=== PATIENT | male | born 1950 | race Two or more races ===

== ENCOUNTER 2018-03-24 06:24 | Day surgery (SDC) | payer BC, MEDICARE ==
[~2018-03-24] VITALS: Ht 30.5 cm; Wt 0.5 kg
[~2018-03-24 06:24] MED LIST: [UNRECOGNIZED DRUG - OTHER]
[2018-03-24] MEDS ORDERED: ceFAZolin 1GM/100ML 50 ML IV ONE (07:54)
[2018-03-24 08:14] LABS: Basophils # (auto) 0 uL; Basophils % (auto) 0.7 % (0.0-2.0); Eosinophils # (auto) 0.3 uL; Eosinophils % (auto) 4.3 % (0.0-7.0); Hematocrit 48.3 % (41.0-53.0); Hemoglobin 16.1 g/dL (13.5-17.5); Lymphocytes # (auto) 1.7 uL; Lymphocytes % (auto) 25.2 % (10.0-50.0); Mean Corpuscular Hemoglobin 29.4 pg (28.0-32.0); Mean Corpuscular Hgb Conc. 33.4 g/dL (32.0-36.0); Mean Corpuscular Volume 88.1 fL (80.0-100.0); Monocytes # (auto) 0.5 uL; Monocytes % (auto) 7.2 % (0.0-12.0); Neutrophils # (auto) 4.3 uL; Neutrophils % (auto) 62.6 % (37.0-80.0); Nucleated Red Blood Cells % 0.1 %; Platelet Count (auto) 186 10^3/uL (140-450); Red Blood Cells 5.48 10^6/uL (4.5-5.90); White Blood Cell 6.9 10^3/uL (4.4-10.8)
[2018-03-24 08:27] LABS: INR 1.03 (0.9-1.15); Prothrombin Time 11.2 sec (9.37-12.3)
[2018-03-24 08:45] LABS: BUN/Creatinine Ratio 17.6; Calcium 8.7 mg/dL (8.5-10.1); Potassium 4.1 mmol/L (3.5-5.1)
[2018-03-24] MEDS ORDERED: LIDOCAINE HCL 100 MG/5ML (2%) SYRG INJ IV ONE (10:15)
[2018-03-24] MEDS ORDERED: PROPOFOL 10 MG/ML 20 ML IV ONE (10:15)
[2018-03-24] MEDS ORDERED: MIDAZOLAM HCL 1MG/1ML-2 ML VIAL ONE (10:15)
[2018-03-24] MEDS ORDERED: METOCLOPRAMIDE HCL 5MG/ml INJ 2ml VIAL ONE (10:33)
[2018-03-24] MEDS ORDERED: LIDOCAINE HCL 2% TOP JELLY 5ML TOP ONE (10:35)
[2018-03-24] MEDS ORDERED: fentaNYL CITRATE 100 MCG/2 ML VL ONE (10:43)
[2018-03-24] MEDS ORDERED: ePHEDrine SULFATE 50 MG/ML AMP ONE (10:58)
[2018-03-24] MEDS ORDERED: ACCU-CHEK COMFORT CURVE STRIP VI ONE (11:00)
[2018-03-24] MEDS ORDERED: NALOXONE HCL 0.4 MG/ML VIAL IV PRN (11:00)
[2018-03-24] MEDS ORDERED: ONDANSETRON HCL 4 MG/2 ML VIAL IV ONE (11:00)
[2018-03-24] MEDS ORDERED: MORPHINE SULFATE 8mg/ml INJ SDV IV PRN (11:00)
[2018-03-24] MEDS ORDERED: KETOROLAC TROMETH 30 MG/ML 1ML VIAL ONE (11:03)
[2018-03-24] MEDS ORDERED: hydrALAZINE HCL 20 MG/ML VL ONE (11:56)
[2018-03-24] MEDS ORDERED: hydrALAZINE HCL 20 MG/ML VL IV ONE (12:00)
[2018-03-24 12:40] VITALS: BP 156/92
== END 2018-03-26 12:40 | disposition home or self-care (01) ==
LOC: SUR 06:24
PROVIDERS: ATTEND Urology
DX: N20.0 Calculus of kidney (principal); M19.90 Unspecified osteoarthritis, unspecified site; G47.33 Obstructive sleep apnea (adult) (pediatric); E66.9 Obesity, unspecified; E11.9 Type 2 diabetes mellitus without complications; N40.1 Benign prostatic hyperplasia with lower urinary tract symptoms; N18.9 Chronic kidney disease, unspecified; I12.9 Hypertensive chronic kidney disease with stage 1 through stage 4 chronic kidney disease, or unspecified chronic kidney disease; M06.9 Rheumatoid arthritis, unspecified; Z98.84 Bariatric surgery status; Z79.899 Other long term (current) drug therapy
CPT/HCPCS: 36415; 50590; 71045; 80048; 82962; 85025; 85610; 85730; J0360; J0690; J1885; J2250; J2704; J2765; J3010; 93005

== ENCOUNTER 2025-04-17 06:27 | Inpatient (IN) | payer BC, MEDICARE ==
[~2025-04-17] VITALS: Ht 177.8 cm; Wt 101.6 kg
--- NOTE | 2025-04-17 06:52 | ED.PDOC ---
History of Present Illness HPI Comments 74-year-old male BIBA with prior medical history of diabetes, hypertension, kidney stones; surgical history of knee replacement surgery in the chief complaint of epistaxis. EMS report that the patient had a nosebleed which started this morning pouring out when we arrived on scene and with a blood pressure on scene of 200/95. Patient states that he wants any now when the epistaxis started. Son only having cough status post C/C. Denies blood thinners, trauma, sneeze chills, fever, N/V/D, SOB, CP. No other associated symptoms, modifiers, recent injuries or sick contacts present at this time. Time Seen by MD: 06:30 Primary Care Provider: ANGELICA Reviewed Notes: Nurses Notes, Medications, Allergies Allergies: Coded Allergies: NO KNOWN ALLERGIES (Unverified , 12/27/10) Home Meds Reported Medications [Cold Medications] No Conflict Check 12/27/10 Information Source: Patient, Emergency Med Personnel Mode of Arrival: EMS Severity: Moderate Timing: Minutes Duration: Since onset Prehospital treatment: None Past Medical History PAST MEDICAL HISTORY: DM, HTN, Kidney Stones Surgical History (Other): Knee replacement surgery Family History Family History: Reviewed,noncontributory to illness, Unknown Social History Smoker: Non-Smoker Alcohol: Denies ETOH Use Drugs: Denies Drug Use Lives In: Home Constitutional: denies: chills, diaphoresis, fatigue, fever, malaise, sweats, weakness, others EENTM: reports: nose bleeding; denies: blurred vision, double vision, ear bleeding, ear discharge, ear drainage, ear pain, ear ringing, eye pain, eye redness, hearing loss, mouth pain, mouth swelling, nasal discharge, nose congestion, nose pain, photophobia, tearing, throat pain, throat swelling, voice changes, others Respiratory: reports: cough; denies: hemoptysis, orthopnea, SOB at rest, shortness of breath, SOB with excertion, stridor, wheezing, others Cardiovascular: denies: chest pain, dizzy spells, diaphoresis, Dyspnea on exertion, edema, irregular heart beat, left arm pain, lightheadedness, palpitations, PND, syncope, others Gastrointestinal: denies: abdomen distended, abdominal pain, blood streaked bowels, constipated, diarrhea, dysphagia, difficulty swallowing, hematemesis, melena, nausea, poor appetite, poor fluid intake, rectal bleeding, rectal pain, vomiting, others Genitourinary: denies: burning, dysuria, flank pain, frequency, hematuria, incontinence, penile discharge, penile sore, pain, testicle pain, testicle swelling, urgency, others Neurological: denies: dizziness, fainting, headache, left sided numbness, left sided weakness, numbness, paresthesia, pre-existing deficit, right sided numbness, right sided weakness, seizure, speech problems, tingling, tremors, weakness, others Musculoskeletal: denies: back pain, gout, joint pain, joint swelling, muscle pain, muscle stiffness, neck pain, others Integumetry: denies: bruises, change in color, change in hair/nails, dryness, laceration, lesions, lumps, rash, wounds, others Allergic/Immunocompromised: denies: Difficulty Healing, Frequent Infections, Hives, Itching, others Hematologic/Lymphatic: denies: anemia, blood clots, easy bleeding, easy bruising, swollen glands, others Endocrine: denies: excessive hunger, excessive sweating, excessive thirst, excessive urination, flushing, intolerance to cold, intolerance to heat, unexplained weight gain, unexplained weight loss, others Psychiatric: denies: anxiety, bipolar disorder, depression, hopeless, panic disorder, schizophrenia, sleepless, suicidal, others All Other Systems: Reviewed and Negative Physical Exam General Appearance: Moderate Distress, Normal HEENT: Pharynx Normal, TMs Normal, Other (Right nosebleed) Neck: Full Range of Motion, Non-Tender, Normal, Normal Inspection Respiratory: Chest Non-Tender, Lungs Clear, No Accessory Muscle Use, No Respiratory Distress, Normal Breath Sounds Cardiovascular: No Edema, No JVD, No Murmur, No Gallop, Normal Peripheral Pulses, Regular Rate/Rhythm Breast Exam: Deferred Gastrointestinal: No Organomegaly, Non Tender, No Pulsatile Mass, Normal Bowel Sounds, Soft Genitalia: Deferred Pelvic: Deferred Rectal: Deferred Extremities: No calf tenderness, Normal capillary refill, Normal inspection, Normal range of motion, Non-tender, No pedal edema Musculoskeletal : Apperance: Normal Neurologic: Alert, delicatessen clerk II-XII nml as Tested, No Motor Deficits, Normal Affect, Normal Mood, No Sensory Deficits Cerebellar Function: NOT DONE Reflexes: NOT DONE Skin: Dry, Normal Color, Warm Lymphatic: No Adenopathy Was a procedure done? Was a procedure done?: Yes Sedation Sedation?: No Nasal Cautery and Pack Indicaton: Anterior epitaxis Silver nitrate: Bilateral Hemostasis: Was obtained Location of packing: Right, Left Packing: Inflatable balloon Differential Dx Considerations may include: Nosebleed Electrolyte imbalance X-Ray, Labs, Meds, VS Vital Signs Date Time Temp Pulse Resp B/P (MAP) Pulse Ox O2 Delivery O2 Flow Rate FiO2 04/17/25 08:34 67 16 98 Room Air* 0 21 04/17/25 08:13 67 18 138/81 04/17/25 08:10 56 04/17/25 07:30 98.1 67 16 138/81 (100) 98 98.1 04/17/25 06:48 97.7 87 18 200/95 (130) 100 97.7 Lab Test 04/17/25 07:05 Range/Units White Blood Count 8.0 4.4-10.8 10^3/uL Red Blood Count 5.15 4.5-5.90 10^6/uL Hemoglobin 15.3 13.5-17.5 g/dL Hematocrit 45.4 41.0-53.0 % Mean Corpuscular Volume 88.2 80.0-100.0 fL Mean Corpuscular Hemoglobin 29.6 28.0-32.0 pg Mean Corpuscular Hemoglobin Concent 33.6 32.0-36.0 g/dL Red Cell Distribution Width 14.0 11.8-14.3 % Platelet Count 213 140-450 10^3/uL Mean Platelet Volume 8.5 6.9-10.8 fL Neutrophils (%) (Auto) 70.6 37.0-80.0 % Lymphocytes (%) (Auto) 19.2 10.0-50.0 % Monocytes (%) (Auto) 5.1 0.0-12.0 % Eosinophils (%) (Auto) 4.4 0.0-7.0 % Basophils (%) (Auto) 0.7 0.0-2.0 % Neutrophils # (Auto) 5.7 1.6-8.6 10 ^3/uL Lymphocytes # (Auto) 1.5 0.4-5.4 10 ^3/uL Monocytes # (Auto) 0.4 0-1.3 10 ^3/uL Eosinophils # (Auto) 0.3 0-0.8 10 ^3/uL Basophils # (Auto) 0.1 0-0.2 10 ^3/uL Nucleated Red Blood Cells 0.1 % Prothrombin Time 10.6 9.3-11.8 sec Prothrombin Time INR 1.00 0.9-1.15 Activated Partial Thromboplast Time 27.0 24.5-34.5 SEC Sodium Level 139 136-145 mmol/L Potassium Level 4.2 3.5-5.1 mmol/L Chloride Level 106 98-107 mmol/L Carbon Dioxide Level 23 20-31 mmol/L Anion Gap 10 5-15 Blood Urea Nitrogen 22 9-23 mg/dL Creatinine 1.39 H 0.700-1.30 mg/dL Glomerular Filtration Rate Calc 53 >90 mL/min BUN/Creatinine Ratio 15.8 10.0-20.0 Serum Glucose 143 H 74-106 mg/dL Calcium Level 9.4 8.7-10.4 mg/dL Troponin I High Sensitivity 3 L </=54 ng/L Current Medications Medications (Trade) Dose Ordered Sig/Álvaro Route Start Time Stop Time Status Last Admin Morphine Sulfate 4 mg ONCE ONCE IV 04/17/25 08:00 04/17/25 08:02 DC 04/17/25 08:13 Ondansetron HCl (Zofran) 4 mg ONCE ONCE IV 04/17/25 08:00 04/17/25 08:02 DC 04/17/25 08:13 Patient alert. Continues to have nosebleed. Blood pressure elevated. Answering questions pain Was given labetalol. Placed a rhino rocket. He denies use of blood thinner. Reviewed his previous visit. Continue monitoring. Time of 1ST Reevaluation: 07:00 Reevaluation 1ST: Unchanged Patient Education/Counseling: Diagnosis, Treatment, Prognosis Family Education/Counseling: No Family Present Departure 1 Departure Time of Disposition: 07:09 Impression: Primary Impression: Hypertensive emergency Additional Impression: Nosebleed Disposition: ADMITTED INPATIENT Admit to: Med Surg Condition: Guarded Critical Care Note Critical Care Time?: Yes (90 min-critical care time only) Critical care comment: Monitor blood pressure epistaxis Stability Stability form required: No Heart Score Heart Score: Heart Score Response (Comments) Value History Slightly Suspicious 0 EKG Normal 0 Age >65 2 Risk Factors >3 or Hx ASHD 2 Troponin Normal limit 0 Total 4 I personally scribed for ZARI GODDARD MD ([email or web address]) on 04/17/25 at 06:52. Electronically submitted by Robert Covington ([email or web address]). ZARI GODDARD MD April 17, 2025 06:52
[2025-04-17 07:54] LABS: Chloride 106 mmol/L (98-107); Potassium 4.2 mmol/L (3.5-5.1); Sodium 139 mmol/L (136-145)
[2025-04-17 07:55] LABS: Anion Gap 10 (5-15); Basophils # (auto) 0.1 10 ^3/uL (0-0.2); Basophils % (auto) 0.7 % (0.0-2.0); Calcium 9.4 mg/dL (8.7-10.4); Carbon Dioxide 23 mmol/L (20-31); Eosinophils # (auto) 0.3 10 ^3/uL (0-0.8); Eosinophils % (auto) 4.4 % (0.0-7.0); Hematocrit 45.4 % (41.0-53.0); Hemoglobin 15.3 g/dL (13.5-17.5); Lymphocytes # (auto) 1.5 10 ^3/uL (0.4-5.4); Lymphocytes % (auto) 19.2 % (10.0-50.0); Mean Corpuscular Hemoglobin 29.6 pg (28.0-32.0); Mean Corpuscular Hgb Conc. 33.6 g/dL (32.0-36.0); Mean Corpuscular Volume 88.2 fL (80.0-100.0); Monocytes # (auto) 0.4 10 ^3/uL (0-1.3); Monocytes % (auto) 5.1 % (0.0-12.0); Neutrophils # (auto) 5.7 10 ^3/uL (1.6-8.6); Neutrophils % (auto) 70.6 % (37.0-80.0); Nucleated Red Blood Cells % 0.1 %; Platelet Count (auto) 213 10^3/uL (140-450); Red Blood Cells 5.15 10^6/uL (4.5-5.90)
[2025-04-17 08:00] LABS: BUN/Creatinine Ratio 15.8 (10.0-20.0); Blood Urea Nitrogen 22 mg/dL (9-23)
[2025-04-17 08:03] LABS: Glucose 143 mg/dL (74-106); Prothrombin Time 10.6 sec (9.3-11.8)
[2025-04-17] MEDS: MORPHINE SULFATE 4 MG/ML SYR/VIAL IV ONE (08:13)
[2025-04-17] MEDS: LABETALOL HCL 20 MG/4 ML VL IV ONE (08:13)
[2025-04-17] MEDS: ONDANSETRON HCL 4 MG/2 ML VIAL IV ONE (08:13)
[2025-04-17 08:34] VITALS: PULSE 67; RESP 16; O2SAT 98
[2025-04-17] MEDS: SODIUM CHLORIDE 0.9% 1,000 ML IV ONE (08:47)
[2025-04-17] MEDS ORDERED: MORPHINE SULFATE INJ 2 MG/ml SYRG IV PRN (11:00)
[2025-04-17] MEDS ORDERED: ONDANSETRON HCL 4 MG/2 ML VIAL IV PRN (11:00)
[2025-04-17] MEDS ORDERED: NITROGLYCERIN 0.4 MG SL TAB SL PRN (11:00)
[2025-04-17] MEDS ORDERED: DEXTROSE (50%) 50ML SYRG IV PRN (11:00)
--- NOTE | 2025-04-17 11:01 | DVHHP2 ---
History of Present Illness History of Present Illness 74-year-old with a history of type 2 diabetes, hypertension presents to the emergency room for epistaxis. Patient was found to have blood pressure above 200 systolic. Patient denies history of using blood thinners. Review of Systems Constitutional: No: Fever, Chills, Sweats, Weakness, Malaise, Other ENT: Other (nose bleed) Cardiovascular: No: Chest Pain, Palpitations, Orthopnea, Paroxysmal Noc. Dyspnea, Edema, Lt Headedness, Other Gastrointestinal: No: Nausea, Vomiting, Abdominal Pain, Diarrhea, Constipation, Melena, Hematochezia, Other Allergies: Coded Allergies: NO KNOWN ALLERGIES (Unverified , 12/27/10) Exam Vital Signs Vital Signs Date Time Temp Pulse Resp B/P (MAP) Pulse Ox O2 Delivery O2 Flow Rate FiO2 04/17/25 10:23 64 12 178/102 (127) 96 04/17/25 08:34 Room Air* 0 21 04/17/25 07:30 98.1 98.1 General Appearance: Oriented X3 HEENT: Atraumatic Respiratory: Clear to auscultation, Normal air movement Cardiovascular: Regular rate, Normal S1, Normal S2 Abdominal: Normal bowel sounds, Soft, No tenderness, No hepatospenomegaly Extremities: No clubbing, No cyanosis Skin: No rashes, No breakdown Labs/Xrays Labs Test 04/17/25 07:05 Range/Units White Blood Count 8.0 4.4-10.8 10^3/uL Red Blood Count 5.15 4.5-5.90 10^6/uL Hemoglobin 15.3 13.5-17.5 g/dL Hematocrit 45.4 41.0-53.0 % Mean Corpuscular Volume 88.2 80.0-100.0 fL Mean Corpuscular Hemoglobin 29.6 28.0-32.0 pg Mean Corpuscular Hemoglobin Concent 33.6 32.0-36.0 g/dL Red Cell Distribution Width 14.0 11.8-14.3 % Platelet Count 213 140-450 10^3/uL Mean Platelet Volume 8.5 6.9-10.8 fL Neutrophils (%) (Auto) 70.6 37.0-80.0 % Lymphocytes (%) (Auto) 19.2 10.0-50.0 % Monocytes (%) (Auto) 5.1 0.0-12.0 % Eosinophils (%) (Auto) 4.4 0.0-7.0 % Basophils (%) (Auto) 0.7 0.0-2.0 % Neutrophils # (Auto) 5.7 1.6-8.6 10 ^3/uL Lymphocytes # (Auto) 1.5 0.4-5.4 10 ^3/uL Monocytes # (Auto) 0.4 0-1.3 10 ^3/uL Eosinophils # (Auto) 0.3 0-0.8 10 ^3/uL Basophils # (Auto) 0.1 0-0.2 10 ^3/uL Nucleated Red Blood Cells 0.1 % Prothrombin Time 10.6 9.3-11.8 sec Prothrombin Time INR 1.00 0.9-1.15 Activated Partial Thromboplast Time 27.0 24.5-34.5 SEC Sodium Level 139 136-145 mmol/L Potassium Level 4.2 3.5-5.1 mmol/L Chloride Level 106 98-107 mmol/L Carbon Dioxide Level 23 20-31 mmol/L Anion Gap 10 5-15 Blood Urea Nitrogen 22 9-23 mg/dL Creatinine 1.39 H 0.700-1.30 mg/dL Glomerular Filtration Rate Calc 53 >90 mL/min BUN/Creatinine Ratio 15.8 10.0-20.0 Serum Glucose 143 H 74-106 mg/dL Calcium Level 9.4 8.7-10.4 mg/dL Troponin I High Sensitivity 3 L </=54 ng/L Assessment/Plan Assessment/Plan 1. Epistaxis monitor, rhino rocket 2. HTN continue home meds 3. type 2 daibetes with hypergycemia CC diet, insulin ss 4. CKD 3a monitor renal function 5. hypertensive urgency antihypertensives Plan discussed with: Patient My Orders Orders - JON SALDAÑA Procedure Category Date Status Time Admit ADMIT 04/17/25 Transmitted 10:58 Code Status CODE 04/17/25 Transmitted 10:58 Ondansetron Hcl PHA 04/17/25 Transmitted (Zofran) 11:00 Cardiac DIET 04/17/25 Transmitted Diet-2gna,Lofat,Lochol Lunch Nitroglycerin PHA 04/17/25 Transmitted Sublingual (Ntrostat 11:00 Morphine Sulfate PHA 04/17/25 Transmitted Injection 11:00 Stat Ekg For Chest JANN 04/17/25 Transmitted Pain 10:58 Notify Of Changes JANN 04/17/25 Transmitted From Base 10:58 Beer Maker For JANN 04/17/25 Transmitted 24 Hours 10:58 Emergency Dysrhythmia JANN 04/17/25 Transmitted Protocol 10:58 Rhythm Strips Once JANN 04/17/25 Transmitted Every Shift 10:58 Oxygen By Nasal RT 04/17/25 Transmitted Cannula 10:58 Date of Service: April 17, 2025 Billing Provider: SAHARA DOMINGUEZ MD Common Visit Codes: [id number] INP/OBS CARE (MOD) JON SALDAÑA HOSPICE EDUCATOR April 17, 2025 11:01
[2025-04-17] MEDS: NIFEdipine ER 30 MG TAB PO ONE (11:18)
[2025-04-17] MEDS: InsuLIN REG 1unit/0.01ml Soln (100units/ml) SC SCH (11:30)
[2025-04-17] MEDS: ACCU-CHEK COMFORT CURVE STRIP VI SCH (11:38)
[2025-04-17 12:53] VITALS: PULSE 68; RESP 18; O2SAT 98
[2025-04-17 13:01] VITALS: BP 164/96; PULSE 63; RESP 16; TEMP 97.6; O2SAT 96
[2025-04-17] MEDS ORDERED: SEMA1INJ2 (13:43)
[2025-04-17] MEDS ORDERED: TAMS0.4C39 PO (13:43)
[2025-04-17] MEDS ORDERED: FINE20TA PO (13:44)
[2025-04-17] MEDS ORDERED: GLIP10TA9 PO (13:45)
[2025-04-17] MEDS: ACETAMINOPHEN 325 MG TAB PO PRN (16:56)
[2025-04-17 17:00] VITALS: BP 140/81; PULSE 86; RESP 20; TEMP 97.5; O2SAT 94
[2025-04-17 19:30] VITALS: PULSE 74; RESP 17; O2SAT 94
[2025-04-17 20:45] VITALS: BP 108/65; PULSE 74; RESP 16; TEMP 97.7; O2SAT 94
[2025-04-17] MEDS: ATORVASTATIN 20 MG TAB PO SCH (20:46)
[2025-04-18] VITALS (8 sets, daily range): BP systolic 119–156; BP diastolic 71–91; PULSE 65–73; RESP 16–20; TEMP 97.7–98.1; O2SAT 93–99
[2025-04-18] MEDS: hydrALAZINE HCL 20 MG/ML VL IV PRN (04:59)
[2025-04-18] MEDS: hydroCHLOROthiazide 25 MG TAB PO SCH (09:38)
[2025-04-18] MEDS: NIFEdipine ER 30 MG TAB PO SCH (09:39)
[2025-04-18] MEDS: LISINOPRIL 5 MG TAB PO SCH (09:40)
--- NOTE | 2025-04-18 14:08 | DVHPN2 ---
Progress Note - Dictate Date Seen: April 18, 2025 Medical Necessity Reason Pt with a Central, PICC or Fol: No vital signs Vital Sign Date Time Temp Pulse Resp B/P (MAP) Pulse Ox O2 Delivery O2 Flow Rate FiO2 04/18/25 13:00 98.1 67 20 148/91 (110) 95 98.1 04/18/25 08:00 Room Air* 0 21 Total Intake and Output 04/17/25 04/17/25 04/18/25 15:00 23:00 07:00 Intake Total 1000 ml 100 ml 400 ml Balance 1000 ml 100 ml 400 ml medications Current Medications Medications Dose Ordered Sig/Álvaro Route Start Time Stop Time Status Last Admin Dose Admin Ondansetron HCl 4 mg Q4HP PRN IV 04/17/25 11:00 Nitroglycerin 0.4 mg Q5MINP PRN SL 04/17/25 11:00 Morphine Sulfate 2 mg Q30M PRN IV 04/17/25 11:00 Diagnostic Test (Pha) 1 strip ACHS 04/17/25 11:30 04/18/25 11:30 1 STRIP Insulin Human Regular ACHS SC 04/17/25 11:30 04/18/25 05:35 2 UNITS Dextrose 50 ml UD PRN IV 04/17/25 11:00 Atorvastatin Calcium 10 mg HS PO 04/17/25 22:00 04/17/25 20:46 10 MG Nifedipine 30 mg DAILY PO 04/18/25 10:00 04/18/25 09:39 30 MG Hydralazine HCl 10 mg Q6HP PRN IV 04/17/25 11:00 04/18/25 04:59 10 MG Lisinopril 10 mg DAILY PO 04/18/25 10:00 04/18/25 09:40 10 MG Acetaminophen 325 mg Q4HP PRN PO 04/17/25 16:00 04/18/25 08:52 325 MG Hydrochlorothiazide 12.5 mg DAILY PO 04/18/25 10:00 04/18/25 09:38 12.5 MG objective General Appearance: alert, no distress HEENT: EOMI, PERRLA, normal external inspect of ears, no icterus, no nasal drainage Neck: no carotid bruit, no jugular venous distention (JVD), no lymphadenopathy Chest: normal thorax Respiratory: clear to auscultation, normal air movement Cardiovascular: regular rate and rhythm, no diastolic murmur, no jugular venous distention (JVD), no rub, no systolic murmur Abdominal: soft, no hepatomegaly, no mass, no splenomegaly, no tenderness Genitourinary: grossly normal external Musculoskeletal: no joint tenderness, no swelling Extremities: normal pulses, no calf tenderness, no clubbing, no cyanosis, no edema Skin: no bruising, no jaundice, no rash Neurological: alert, No focal deficit laboratory and microbiology Laboratory Tests 04/17/25 07:05 Test 04/17/25 07:05 Range/Units Serum Glucose 143 H 74-106 mg/dL Problem List 1. Epistaxis monitor, rhino rocket 2. HTN continue home meds 3. type 2 diabetes with hyperglycemia CC diet, insulin ss 4. CKD 3a monitor renal function 5. hypertensive urgency antihypertensives Assessment/Plan Subjective: Patient is awake and alert. Objective: Admitted for epistaxis. Blood pressure was in the 200s. Hemoglobin is currently pending. Plan: Consult ER physician to remove bilateral nasal Rockets. Repeat CBC pending. DC planning. Plan discussed with: Patient, Other AMBROCIO CALVERT NP April 18, 2025 14:08
[2025-04-18 15:14] LABS: Basophils # (auto) 0 10 ^3/uL (0-0.2); Basophils % (auto) 0.1 % (0.0-2.0); Eosinophils # (auto) 0.1 10 ^3/uL (0-0.8); Eosinophils % (auto) 0.7 % (0.0-7.0); Hematocrit 41.8 % (41.0-53.0); Lymphocytes # (auto) 1.8 10 ^3/uL (0.4-5.4); Mean Corpuscular Hemoglobin 29.4 pg (28.0-32.0); Mean Corpuscular Hgb Conc. 33.4 g/dL (32.0-36.0); Monocytes # (auto) 1.1 10 ^3/uL (0-1.3); Monocytes % (auto) 9.2 % (0.0-12.0); Neutrophils # (auto) 8.5 10 ^3/uL (1.6-8.6); Platelet Count (auto) 211 10^3/uL (140-450); Red Blood Cells 4.75 10^6/uL (4.5-5.90); Red Cell Distribution Width 14.1 % (11.8-14.3); White Blood Cell 11.5 10^3/uL (4.4-10.8)
[2025-04-19 05:00] VITALS: BP 118/73; PULSE 65; RESP 18; TEMP 98.6; O2SAT 94
[2025-04-19 08:00] VITALS: PULSE 66; RESP 16; O2SAT 97
[2025-04-19 08:35] VITALS: BP 128/66; PULSE 66; RESP 16; TEMP 98; O2SAT 97
[2025-04-19] MEDS: LISINOPRIL 5 MG TAB PO SCH (09:38)
--- NOTE | 2025-04-19 12:43 | DVHDS2 ---
Discharge Summary Date of Admission April 17, 2025 at 10:58 Date of Discharge: April 19, 2025 Labs/Diagnostic Data: Laboratory Results Test 04/19/25 06:05 04/18/25 14:48 04/17/25 07:05 POC Glucose 137 mg/dl (70-106) White Blood Count 11.5 10^3/uL (4.4-10.8) Red Blood Count 4.75 10^6/uL (4.5-5.90) Hemoglobin 14.0 g/dL (13.5-17.5) Hematocrit 41.8 % (41.0-53.0) Mean Corpuscular Volume 88.0 fL (80.0-100.0) Mean Corpuscular Hemoglobin 29.4 pg (28.0-32.0) Mean Corpuscular Hemoglobin Concent 33.4 g/dL (32.0-36.0) Red Cell Distribution Width 14.1 % (11.8-14.3) Platelet Count 211 10^3/uL (140-450) Mean Platelet Volume 8.2 fL (6.9-10.8) Neutrophils (%) (Auto) 74.0 % (37.0-80.0) Lymphocytes (%) (Auto) 16.0 % (10.0-50.0) Monocytes (%) (Auto) 9.2 % (0.0-12.0) Eosinophils (%) (Auto) 0.7 % (0.0-7.0) Basophils (%) (Auto) 0.1 % (0.0-2.0) Neutrophils # (Auto) 8.5 10 ^3/uL (1.6-8.6) Lymphocytes # (Auto) 1.8 10 ^3/uL (0.4-5.4) Monocytes # (Auto) 1.1 10 ^3/uL (0-1.3) Eosinophils # (Auto) 0.1 10 ^3/uL (0-0.8) Basophils # (Auto) 0 10 ^3/uL (0-0.2) Nucleated Red Blood Cells 0.0 % Prothrombin Time 10.6 sec (9.3-11.8) Prothrombin Time INR 1.00 (0.9-1.15) Activated Partial Thromboplast Time 27.0 SEC (24.5-34.5) Sodium Level 139 mmol/L (136-145) Potassium Level 4.2 mmol/L (3.5-5.1) Chloride Level 106 mmol/L (98-107) Carbon Dioxide Level 23 mmol/L (20-31) Anion Gap 10 (5-15) Blood Urea Nitrogen 22 mg/dL (9-23) Creatinine 1.39 mg/dL (0.700-1.30) Glomerular Filtration Rate Calc 53 mL/min (>90) BUN/Creatinine Ratio 15.8 (10.0-20.0) Serum Glucose 143 mg/dL (74-106) Calcium Level 9.4 mg/dL (8.7-10.4) Troponin I High Sensitivity 3 ng/L (</=54) Other Laboratory Tests 04/18/25 14:48 04/17/25 07:05 Brief Hx & Hospital Course: 74-year-old with a history of type 2 diabetes, hypertension presents to the emergency room for epistaxis. Patient was found to have blood pressure above 200 systolic. Patient denies history of using blood thinners. While in the emergency department the patient was evaluated by the provider, As per provider: Labs, vital signs, and imagining monitored. Patient was admitted for epistaxis. Patient had hypertensive urgency. Rhino rockets were placed bilaterally. Hemoglobin has remained stable. Blood pressure is now more controlled. New medications were sent to his pharmacy. Rhino rockets were discontinued by ER physician, and he was instructed to follow up with his PCP in one week. There were no complaints or new complaints upon discharge, all questions and concerns were answered. Patient was advised to return to the ER or call 911 if any headaches, dizziness, shortness of breath, chest pain, bleeding, fevers, or worsening of medical condition. Patient/Family was counseled about treatment plan, medications, possible side effects, patientverbalized understanding. All questions were answered to the best of my ability. The patient symptoms improved and they are okay to be DC. Condition at Discharge: Stable Final Diagnosis/Problems List Epistaxis HTN type 2 daibetes with hypergycemia CKD 3a hypertensive urgency Discharge Disposition: Home Discharge Statement: "Patient was advised to return to the ER or call 911 if any headaches, dizziness, shortness of breath, chest pain, abdominal pain, bleeding, fevers, or worsening of medical condition. Patient was counseled about treatment plan, medications, possible side effects, patientverbalized understanding. All questions were answered to the best of my ability. This discharge took greater then 30 minutes in planning, reviewing documentation, counseling the patient, and discussing with other team members." ASSESSMENT ASSESSMENT Assessment AMBROCIO CALVERT NP April 19, 2025 12:43
[2025-04-19] MEDS ORDERED: NIFE1TAB31 PO (12:45)
[2025-04-19] MEDS ORDERED: LISI20TA56 PO (12:45)
[2025-04-19] MEDS ORDERED: HYDR25TA5 PO (12:45)
--- NOTE | 2025-04-19 12:46 | DVHDS2 ---
Discharge Summary Date of Admission April 17, 2025 at 10:58 Date of Discharge: April 19, 2025 Labs/Diagnostic Data: Laboratory Results Test 04/19/25 06:05 04/18/25 14:48 04/17/25 07:05 POC Glucose 137 mg/dl (70-106) White Blood Count 11.5 10^3/uL (4.4-10.8) Red Blood Count 4.75 10^6/uL (4.5-5.90) Hemoglobin 14.0 g/dL (13.5-17.5) Hematocrit 41.8 % (41.0-53.0) Mean Corpuscular Volume 88.0 fL (80.0-100.0) Mean Corpuscular Hemoglobin 29.4 pg (28.0-32.0) Mean Corpuscular Hemoglobin Concent 33.4 g/dL (32.0-36.0) Red Cell Distribution Width 14.1 % (11.8-14.3) Platelet Count 211 10^3/uL (140-450) Mean Platelet Volume 8.2 fL (6.9-10.8) Neutrophils (%) (Auto) 74.0 % (37.0-80.0) Lymphocytes (%) (Auto) 16.0 % (10.0-50.0) Monocytes (%) (Auto) 9.2 % (0.0-12.0) Eosinophils (%) (Auto) 0.7 % (0.0-7.0) Basophils (%) (Auto) 0.1 % (0.0-2.0) Neutrophils # (Auto) 8.5 10 ^3/uL (1.6-8.6) Lymphocytes # (Auto) 1.8 10 ^3/uL (0.4-5.4) Monocytes # (Auto) 1.1 10 ^3/uL (0-1.3) Eosinophils # (Auto) 0.1 10 ^3/uL (0-0.8) Basophils # (Auto) 0 10 ^3/uL (0-0.2) Nucleated Red Blood Cells 0.0 % Prothrombin Time 10.6 sec (9.3-11.8) Prothrombin Time INR 1.00 (0.9-1.15) Activated Partial Thromboplast Time 27.0 SEC (24.5-34.5) Sodium Level 139 mmol/L (136-145) Potassium Level 4.2 mmol/L (3.5-5.1) Chloride Level 106 mmol/L (98-107) Carbon Dioxide Level 23 mmol/L (20-31) Anion Gap 10 (5-15) Blood Urea Nitrogen 22 mg/dL (9-23) Creatinine 1.39 mg/dL (0.700-1.30) Glomerular Filtration Rate Calc 53 mL/min (>90) BUN/Creatinine Ratio 15.8 (10.0-20.0) Serum Glucose 143 mg/dL (74-106) Calcium Level 9.4 mg/dL (8.7-10.4) Troponin I High Sensitivity 3 ng/L (</=54) Other Laboratory Tests 04/18/25 14:48 04/17/25 07:05 Final Diagnosis/Problems List Epistaxis Hypertensive urgency Discharge Disposition: Home Discharge Instruct/Medications Diet: Cardiac 2g Na,low cholest Activity: No Restrictions, As Tolerated Follow Up/Referral: pcp 1 week Medications: medications as prescribed Discharge Statement: "Patient was advised to return to the ER or call 911 if any headaches, dizziness, shortness of breath, chest pain, abdominal pain, bleeding, fevers, or worsening of medical condition. Patient was counseled about treatment plan, medications, possible side effects, patientverbalized understanding. All questions were answered to the best of my ability. This discharge took greater then 30 minutes in planning, reviewing documentation, counseling the patient, and discussing with other team members." ASSESSMENT ASSESSMENT Assessment Epistaxis Hypertensive urgency AMBROCIO CALVERT NP April 19, 2025 12:46
[2025-04-19 13:10] VITALS: BP 107/71; PULSE 71; RESP 17; TEMP 98.2; O2SAT 96
--- NOTE | 2025-04-19 13:31 | ECG ---
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
[2025-04-19 17:15] VITALS: BP 116/72; PULSE 67; RESP 16; TEMP 99.1; O2SAT 95
[2025-04-19 18:13] VITALS: BP 116/72; PULSE 67; RESP 16; TEMP 98.1; O2SAT 95
== END 2025-04-19 18:44 | disposition home or self-care (01) | DRG 305 ==
LOC: ER 06:27 → EDBD 06:27 → EDUNIT# 06:27 → OVERFLOW 10:58 → WEST WING 15:45
PROVIDERS: ADMIT Nurse Practitioner Family; ATTEND Nurse Practitioner Family
PROC: 2Y41X5Z Packing of Nasal Region using Packing Material (ICD-10-PCS; principal; 2025-04-17)
DX: I16.0 Hypertensive urgency (principal); R04.0 Epistaxis; N18.31 Chronic kidney disease, stage 3a; E11.22 Type 2 diabetes mellitus with diabetic chronic kidney disease; I12.9 Hypertensive chronic kidney disease with stage 1 through stage 4 chronic kidney disease, or unspecified chronic kidney disease; E11.65 Type 2 diabetes mellitus with hyperglycemia; Z87.442 Personal history of urinary calculi; Z96.659 Presence of unspecified artificial knee joint; Z79.899 Other long term (current) drug therapy
CPT/HCPCS: 30901; 36415; 80048; 82962; 84484; 85025; 85610; 85730; 93005; 96361; 96374; 96375; 99291; G0378; J1815; J2405